=== PATIENT | female | born 1970 | race Caucasian/White ===

== ENCOUNTER → 2024-05-04 14:59 | Outpatient (REF) | payer BC, SELFPAY | LOC: HWRAD 14:59 | PROVIDERS: ATTENDING PHYSICIAN Family Medicine | DX: Z87.442 Personal history of urinary calculi (principal); R10.9 Unspecified abdominal pain; R31.29 Other microscopic hematuria; Z87.19 Personal history of other diseases of the digestive system | CPT/HCPCS: 74176 ==

== ENCOUNTER 2024-05-12 06:40 | Day surgery (SDC) | payer BC, SELFPAY ==
[2024-05-11 09:55] VITALS: BMI 36.6
[2024-05-11 10:37] LABS: Hematocrit 45.1 % (37.0-47.0); Hemoglobin 15.4 g/dL (12.0-16.0); Mean Corp Hgb Conc. 34.1 g/dL (33.0-37.0); Mean Corpuscular Hgb 30.1 pg (27.0-31.0); Mean Corpuscular Volume 88.3 fL (81.0-99.0); Mean Platelet Volume 9.5 fL (7.4-10.4); Platelet Count 282 10^3/uL (130-400); Red Blood Cell Count 5.11 10^6/uL (4.20-5.40); Red Cell Dist. Width 13.2 % (11.5-14.5)
[2024-05-11 10:47] LABS: APTT 25.1 Sec (23.4-35.0); INR 0.96; PT 12.8 Sec (11.4-14.6)
[2024-05-11 10:59] LABS: Blood Urea Nitrogen 8 mg/dl (7-17); Calcium 9.7 mg/dl (8.4-10.2); Carbon Dioxide 25 mmol/L (22-30); Chloride 105 mmol/L (98-107); Estimated Creatinine Clearance 73 ml/min; Glucose 105 mg/dl (70-99); Potassium 4.4 mmol/L (3.5-5.1); Sodium 140 mmol/L (135-145); eGFR > 60.00
[2024-05-12] VITALS (9 sets, daily range): BP systolic 129–163; BP diastolic 85–106; BMI 36.6
[2024-05-12] MEDS: NORMOSOL-R 1000 IV (13:01)
[2024-05-12] MEDS: TYLENOL 1000 MG PO (13:40)
[2024-05-12] MEDS: Pyridium 200 MG PO (16:40)
[2024-05-16 10:36] LABS: Stone Analysis Mass 7 mg
== END 2024-05-12 17:38 | disposition home or self-care (01) ==
LOC: SDS 06:40
PROVIDERS: ATTENDING PHYSICIAN Specialist; FAMILY PHYSICIAN Family Medicine
DX: N20.1 Calculus of ureter (principal)
CPT/HCPCS: 52356; 36415; 74018; 76000; 80048; 82365; 85027; 85610; 85730; 93005; C1894; C2617

== ENCOUNTER → 2024-06-17 12:05 | Outpatient (REF) | payer BC, SELFPAY | LOC: HWWDC 12:05 | PROVIDERS: ATTENDING PHYSICIAN Nurse Practitioner | DX: Z12.31 Encounter for screening mammogram for malignant neoplasm of breast (principal) | CPT/HCPCS: 77063; 77067 ==

== ENCOUNTER 2024-09-14 06:29 | Day surgery (SDC) | payer BC, SELFPAY | END 2024-09-14 12:56 | disposition home or self-care (01) | LOC: GI 06:29 | PROVIDERS: ATTENDING PHYSICIAN Internal Medicine Gastroenterology | DX: R12 Heartburn (principal); K44.9 Diaphragmatic hernia without obstruction or gangrene; K31.89 Other diseases of stomach and duodenum | CPT/HCPCS: 43239; 88305; 88342 ==

== ENCOUNTER → 2025-06-24 06:39 | Outpatient (REF) | payer BC, SELFPAY | LOC: HWWDC 06:39 | PROVIDERS: ATTENDING PHYSICIAN Obstetrics & Gynecology Gynecology; FAMILY PHYSICIAN Nurse Practitioner | DX: Z12.31 Encounter for screening mammogram for malignant neoplasm of breast (principal) | CPT/HCPCS: 77063; 77067 ==